=== PATIENT | male | born 1965 | race Caucasian/White ===

== ENCOUNTER 2016-06-10 09:53 | Outpatient (CLI) | payer BC ==
[2016-06-10] VITALS (11 sets, daily range): BP systolic 99–135; BP diastolic 71–97
[~2016-06-10] VITALS: Ht 180.3 cm; Wt 117.5 kg
[2016-06-10] MEDS ORDERED: IV 1/2 NORMAL SALINE 1,000 ML IV SCH (10:08)
[2016-06-10] MEDS ORDERED: ATOR40TA59 PO (10:31)
[2016-06-10] MEDS ORDERED: ASPI81TA2 PO (10:31)
[2016-06-10] MEDS ORDERED: LISI10TA2 PO (10:31)
[2016-06-10] MEDS ORDERED: ISOS30TA4 PO (10:31)
[2016-06-10] MEDS ORDERED: CLOP75TA PO (10:31)
[2016-06-10] MEDS ORDERED: METO25TA4 PO (10:31)
[2016-06-10 10:37] LABS: HEMATOCRIT 41.4 % (39.0-53.0); HEMOGLOBIN 14.6 g/dL (13.0-17.5); RED BLOOD COUNT 4.76 x10^6/uL (4.30-5.70); WHITE BLOOD COUNT 3.7 x10^3/uL (4.0-11.0)
[2016-06-10 10:44] LABS: CALCIUM 8.5 mg/dL (8.5-10.1); GFR 79.1; POTASSIUM 4.1 mmol/L (3.5-5.1)
[2016-06-10 10:57] LABS: PROTHROMBIN TIME PATIENT 12.6 SEC (11.7-14.0)
[2016-06-10] MEDS ORDERED: LIDOCAINE 2% 20 ML VIAL. ONE (11:21)
[2016-06-10] MEDS ORDERED: HEPARIN for ARTERIAL LINE 1,500 ML ONE (11:21)
[2016-06-10] MEDS ORDERED: IOHEXOL 300 MG/ML 100ML VIAL. ONE (11:22)
[2016-06-10] MEDS ORDERED: MIDAZOLAM HCL/PF 2 MG/2 ML VIAL. ONE ×2 (11:36→11:47)
[2016-06-10] MEDS ORDERED: fentaNYL PF VIAL 100 MCG/2 ML VIAL ONE ×2 (11:37→11:47)
[2016-06-10] MEDS ORDERED: VERAPAMIL 5 MG/2 ML VIAL. ONE (11:37)
[2016-06-10] MEDS ORDERED: HEPARIN for IV BOLUS 10,000 UNIT/10 ML VIAL. ONE (11:37)
[2016-06-10] MEDS ORDERED: NITROGLYCERIN 200 MCG/2 ML SYRINGE FOR CATH/VASC LAB. ONE (11:37)
[2016-06-10] MEDS ORDERED: MIDAZOLAM HCL/PF 2 MG/2 ML VIAL. IV ONE (12:00)
[2016-06-10] MEDS ORDERED: VERAPAMIL 5 MG/2 ML VIAL. IART ONE (12:00)
[2016-06-10] MEDS ORDERED: HEPARIN for IV BOLUS 10,000 UNIT/10 ML VIAL. IART ONE (12:00)
[2016-06-10] MEDS ORDERED: IOHEXOL 300 MG/ML 100ML VIAL. IART ONE (12:00)
[2016-06-10] MEDS ORDERED: NITROGLYCERIN 200 MCG/2 ML SYRINGE FOR CATH/VASC LAB. IART ONE (12:00)
[2016-06-10] MEDS ORDERED: LIDOCAINE 2% 20 ML VIAL. IJ ONE (12:00)
[2016-06-10] MEDS ORDERED: fentaNYL PF VIAL 100 MCG/2 ML VIAL IV ONE (12:00)
--- NOTE | 2016-06-10 17:00 | CARD ---
APPROVED REPORT Procedure(s) performed: Left Heart Catheterization + Coronary angiography + Left ventriculogram. HISTORY The patient is a 51 year-old male with a history of : previous [place], coronary artery disease, previous PCI (The PCI date was ), hypertension, dyslipidemia. INDICATION The indication(s) include : unstable angina (>72 hrs to = 7 days). PROCEDURE NARRATIVE The patient was brought electively to the cardiac catheterization lab. A timeout was performed confi rming the patient's name, date of , procedure, and site of procedure. All necessary personnel w ere wearing the appropriate protective equipment and radiation monitor devices. After explaining the risks and benefits of the procedure and alternatives, informed consent was obtained. (See nursing no rojelio for medications administered). The right wrist was sterilely prepped and draped in the usual fas hion. The right wrist was infiltrated with 1 mL of 2% lidocaine for subcutaneous anesthesia. A 6 Fr ench Terumo glide sheath was inserted into the right radial artery without difficulty. Right and lef t coronary angiography was performed using a 6Fr TIG 4.0 catheter and a JL3.5 catheter. Left ventric ular end diastolic pressure was obtained with a pigtail catheter and pullback was performed after lef t ventriculography. All catheter exchanges and advancements were performed over a guidewire. At gregoria e completion the right radial sheath was removed and a Terumo radial band was applied with 13 ml of a ir. The patient tolerated the procedure well and there were no immediate complications. HEMODYNAMICS: LVEDP 18 mm Hg No gradient on LV to aortic pullback. LEFT VENTRICULOGRAM: EF 55% Anterobasal: Normal. Anterolateral: Normal Apical: Normal Diaphragmatic: Normal Posterobasal: Normal CORONARY ANGIOGRAPHY: LM is a large caliber vessel with with ostial 20% stenosis and a ectasia in the body and distal segme nts extending into the ostium of the LAD and LCx. LAD is a large caliber vessel with mild diffuse irregularities of up to 30%. Ramus is a moderate caliber vessel with normal angiographic appearance. LCx is a moderate caliber non-dominant vessel with normal angiographic appearance. OM1 is a moderate caliber vessel with long proximal to mid 40-50% stenosis. RCA is a large caliber dominant vessel with a proximal to mid eccentric 40-50% stenosis, followed by patent distal stents. RPDA is small in caliber and has moderate diffuse disease. RPL is a moderate caliber vessel with mild luminal irregularities. Conclusion 1. Normal left ventricular systolic function. EF 55% 2. Two vessel CAD with patent stents in the mid to distal RCA 3. No high grade flow limiting stenosis identified. Recommendations Aggressive Medical Therapy
== END 2016-06-10 15:00 | disposition home or self-care (01) ==
LOC: CCL 09:53
PROVIDERS: ATTEND Internal Medicine Cardiovascular Disease
DX: I20.0 Unstable angina (principal); I10 Essential (primary) hypertension; E78.5 Hyperlipidemia, unspecified; I25.10 Atherosclerotic heart disease of native coronary artery without angina pectoris; Z96.643 Presence of artificial hip joint, bilateral
CPT/HCPCS: 36415; 80048; 85027; 85610; 93458; C1769; C1892; J2250; J3010; J3490

== ENCOUNTER → 2017-09-30 | Outpatient (CLI) | payer BC ==
[2016-06-10 14:35] VITALS: BP 109/75
[~2017-09-30] MED LIST: ASPI-630 PO; ATOR40TA59 PO; CLOP75TA PO; ISOS30TA4 PO; LISI10TA2 PO; METO25TA4 PO
== END | disposition home or self-care (01) ==
LOC: LAB 12:42
PROVIDERS: ATTEND Internal Medicine Cardiovascular Disease
DX: R06.00 Dyspnea, unspecified (principal); I10 Essential (primary) hypertension; E78.5 Hyperlipidemia, unspecified; I25.10 Atherosclerotic heart disease of native coronary artery without angina pectoris; Z96.643 Presence of artificial hip joint, bilateral
CPT/HCPCS: 36415; 80061; 82553; 84484

== ENCOUNTER → 2019-10-07 | Outpatient (CLI) | payer BC ==
[2016-06-10 14:35] VITALS: BP 109/75
--- NOTE | 2019-10-07 14:06 | CARD ---
MR#: [id number] Date of Study: 10/07/2019 Ordering Physician: SAIGE MCDONOUGH, Referring Physician: SAIGE MCDONOUGH, Tech: Maya Lewis [facility] APPROVED REPORT EXAM: Two-dimensional and M-mode echocardiogram with Doppler and color Doppler. Other Information Quality : Good INDICATION Cardiac Disease: CAD 2D DIMENSIONS RVDd3.0 (2.9-3.5cm)Left Atrium(2D)2.7 (1.6-4.0cm) IVSd1.0 (0.7-1.1cm)Aortic Root(2D)3.4 (2.0-3.7cm) LVDd3.8 (3.9-5.9cm)LVOT Diameter2.0 (1.8-2.4cm) PWd1.0 (0.7-1.1cm)LVDs2.6 (2.5-4.0cm) FS (%) 32.6 %SV38.7 ml LVEF(%)61.7 (>50%) Aortic Valve AoV Peak Ulises.121.8cm/sAoV VTI19.1cm AO Peak GR.5.9mmHgLVOT Peak Ulises.120.7cm/s AO Mean GR.3mmHgAVA (VMAX)3.15cm2 CLIFF (VTI)3.30cm2 Mitral Valve MV E Tjulmntk98.9cm/sMV DECEL [id number] MV A Awfjqnan75.3cm/sE/A Ratio0.8 Tricuspid Valve TR P. Yczdfyrx814qj/sRAP [id number] TR Peak Gr.60rjNsAWJP28evLn Pulmonary Vein S1 Csiwhokh95.8cm/sD2 Xglcukvo73.7cm/s LEFT VENTRICLE The left ventricle is normal size. There is normal left ventricular wall thickness. The left ventricu lar systolic function is normal. The Ejection Fraction is 55-60%. There is normal LV segmental wall m otion. Transmitral Doppler flow pattern is Grade I-abnormal relaxation pattern. RIGHT VENTRICLE The right ventricle is normal size. The right ventricular systolic function is normal. ATRIA The left atrium size is normal. The right atrium size is normal. The interatrial septum is intact wit h no evidence for an atrial septal defect or patent foramen ovale as noted on 2-D or Doppler imaging. AORTIC VALVE The aortic valve is calcified but opens well. Doppler and Color Flow revealed no significant aortic r egurgitation. There is no significant aortic valvular stenosis. MITRAL VALVE The mitral valve is normal in structure and function. There is no evidence of mitral valve prolapse. There is no mitral valve stenosis. Doppler and Color Flow revealed no mitral valve regurgitation note d. TRICUSPID VALVE The tricuspid valve is normal in structure and function. Doppler and Color Flow revealed trace tricus pid regurgitation. The PA pressure was estimated at 24 mmHg. There is no tricuspid valve stenosis. PULMONIC VALVE The pulmonary valve is normal in structure and function. Doppler and Color Flow revealed trace to mil d pulmonic valvular regurgitation. There is no pulmonic valvular stenosis. GREAT VESSELS The aortic root is normal in size. The ascending aorta is normal in size. The IVC is normal in size a nd collapses >50% with inspiration. PERICARDIAL EFFUSION There is no evidence of significant pericardial effusion. Critical Notification Critical Value: No <Conclusion> The left ventricular systolic function is normal. The Ejection Fraction is 55-60%. Transmitral Doppler flow pattern is Grade I-abnormal relaxation pattern. Trace tricuspid regurgitation. The PA pressure was estimated at 24 mmHg. There is no evidence of significant pericardial effusion. Signed by : Abel Ybarra, Electronically Approved : 10/07/2019 14:05:56
== END ==
LOC: ECHO 12:47
PROVIDERS: ATTEND Internal Medicine Cardiovascular Disease
DX: I08.8 Other rheumatic multiple valve diseases (principal); I25.10 Atherosclerotic heart disease of native coronary artery without angina pectoris
CPT/HCPCS: 93306

== ENCOUNTER → 2021-01-18 | Outpatient (CLI) | payer OTHER ==
[2016-06-10 14:35] VITALS: BP 109/75
[~2021-01-18] MED LIST changes: -ISOS30TA4 PO; +ISOS30TA68 PO; +LISI10TA16 PO; -LISI10TA2 PO
[2021-01-18 15:31] LABS: BASO % 1 % (0-3); EOS # 0.1 x10^3/uL (0.0-0.7); EOS % 1 % (0-3); HEMATOCRIT 44.2 % (39.0-53.0); HEMOGLOBIN 15.3 g/dL (13.0-17.5); LYMPH # 1.9 x10^3/uL (1.0-4.8); LYMPH % 35 % (24-48); MEAN CORPUSCULAR HEMOGLOBIN 31 pg (25-35); MEAN CORPUSCULAR HGB CONC 35 g/dL (31-37); MEAN CORPUSCULAR VOLUME 90 fL (79-100); MONO # 0.6 x10^3/uL (0.0-1.1); MONO % 11 % (0-9); NEUT # 2.7 x10^3/uL (1.8-7.7); NEUT % 52 % (31-73); PLATELET COUNT 275 x10^3/uL (140-400); RED BLOOD COUNT 4.92 x10^6/uL (4.30-5.70); RED CELL DISTRIBUTION WIDTH 13.5 % (11.5-14.5); WHITE BLOOD COUNT 5.3 x10^3/uL (4.0-11.0)
[2021-01-18 16:11] LABS: ALBUMIN 4.2 g/dL (3.4-5.0); ALBUMIN/GLOBULIN RATIO 1.3 (1.0-1.7); CALCIUM 8.8 mg/dL (8.5-10.1); CREATININE 1.3 mg/dL (0.7-1.3); GFR 57.5; POTASSIUM 3.8 mmol/L (3.5-5.1); TOTAL BILIRUBIN 0.5 mg/dL (0.2-1.0); TOTAL PROTEIN 7.4 g/dL (6.4-8.2)
[2021-01-18 16:15] LABS: CHOLESTEROL/HDL RATIO 6.3
== END ==
LOC: LAB 15:13
PROVIDERS: ATTEND Internal Medicine Cardiovascular Disease
DX: I25.10 Atherosclerotic heart disease of native coronary artery without angina pectoris (principal)
CPT/HCPCS: 36415; 80053; 80061; 85025